=== PATIENT | male | born 1990 | race African-American/Black ===

== ENCOUNTER 2016-11-06 16:59 | Emergency (ER) | payer SELFPAY ==
[~2016-11-06] VITALS: Ht 172.7 cm; Wt 91.0 kg
[~2016-11-06 16:59] MED LIST: ALBU05; KEPP500
[2016-11-06 17:09] VITALS: BP 138/77
== END 2016-11-06 19:50 | disposition home or self-care (01) ==
LOC: ER 19:47
DX: Z76.0 Encounter for issue of repeat prescription (principal); J45.909 Unspecified asthma, uncomplicated; Z79.899 Other long term (current) drug therapy
CPT/HCPCS: 99283

== ENCOUNTER 2016-11-15 14:22 | Emergency (ER) | payer MEDICAID ==
[~2016-11-15] VITALS: Ht 175.3 cm; Wt 86.0 kg
[2016-11-15 14:56] VITALS: BP 132/67
== END 2016-11-15 16:11 | disposition home or self-care (01) ==
LOC: ER 15:54
DX: G40.909 Epilepsy, unspecified, not intractable, without status epilepticus (principal); J45.909 Unspecified asthma, uncomplicated; G91.9 Hydrocephalus, unspecified
CPT/HCPCS: 99283

== ENCOUNTER 2017-01-15 14:58 | Emergency (ER) | payer SELFPAY ==
[~2017-01-15] VITALS: Ht 172.7 cm; Wt 75.0 kg
[2017-01-15 15:09] VITALS: BP 119/77
== END 2017-01-15 16:10 | disposition home or self-care (01) ==
LOC: ER 16:09
DX: Z76.0 Encounter for issue of repeat prescription (principal); G40.909 Epilepsy, unspecified, not intractable, without status epilepticus; J45.909 Unspecified asthma, uncomplicated
CPT/HCPCS: 99283

== ENCOUNTER 2017-02-04 12:27 | Emergency (ER) | payer SELFPAY ==
[~2017-02-04] VITALS: Ht 175.3 cm; Wt 87.0 kg
[2017-02-04 13:16] VITALS: BP 140/84
== END 2017-02-04 18:14 | disposition left against medical advice (07) ==
LOC: ER 17:09
DX: Z53.21 Procedure and treatment not carried out due to patient leaving prior to being seen by health care provider (principal)

== ENCOUNTER 2017-02-05 00:37 | Emergency (ER) | payer SELFPAY ==
[~2017-02-05] VITALS: Ht 170.2 cm; Wt 61.0 kg
[2017-02-05 00:43] VITALS: BP 123/68
== END 2017-02-05 03:04 | disposition home or self-care (01) ==
LOC: ER 00:37
DX: Z76.0 Encounter for issue of repeat prescription (principal)
CPT/HCPCS: 99283

== ENCOUNTER 2017-03-06 09:47 | Emergency (ER) | payer SELFPAY ==
[~2017-03-06] VITALS: Ht 172.7 cm; Wt 81.0 kg
[2017-03-06 09:53] VITALS: BP 133/71
== END 2017-03-06 16:26 | disposition left against medical advice (07) ==
LOC: ER 13:46
DX: Z76.0 Encounter for issue of repeat prescription (principal); Z53.21 Procedure and treatment not carried out due to patient leaving prior to being seen by health care provider

== ENCOUNTER 2017-03-07 00:52 | Emergency (ER) | payer SELFPAY ==
[~2017-03-07] VITALS: Ht 170.2 cm; Wt 91.0 kg
[2017-03-07 00:55] VITALS: BP 128/75
== END 2017-03-07 03:50 | disposition left against medical advice (07) ==
LOC: ER 00:52
DX: Z53.21 Procedure and treatment not carried out due to patient leaving prior to being seen by health care provider (principal)

== ENCOUNTER 2017-03-11 18:23 | Emergency (ER) | payer SELFPAY ==
[~2017-03-11] VITALS: Ht 175.3 cm; Wt 91.0 kg
[2017-03-11 18:33] VITALS: BP 134/65
== END 2017-03-11 22:19 | disposition left against medical advice (07) ==
LOC: ER 18:34
DX: Z48.02 Encounter for removal of sutures (principal); Z53.21 Procedure and treatment not carried out due to patient leaving prior to being seen by health care provider

== ENCOUNTER 2017-03-13 09:20 | Emergency (ER) | payer BC ==
[~2017-03-13] VITALS: Ht 175.3 cm; Wt 91.0 kg
[2017-03-13] MEDS ORDERED: OXCA600T5 PO (09:31)
[2017-03-13 12:00] VITALS: BP 147/82
== END 2017-03-13 12:21 | disposition home or self-care (01) ==
LOC: ER 10:04
DX: Z76.0 Encounter for issue of repeat prescription (principal); G40.409 Other generalized epilepsy and epileptic syndromes, not intractable, without status epilepticus
CPT/HCPCS: 99283

== ENCOUNTER 2017-03-29 08:52 | Emergency (ER) | payer SELFPAY ==
[~2017-03-29] VITALS: Ht 175.3 cm; Wt 91.0 kg
[~2017-03-29 08:52] MED LIST changes: +OXCA600T5 PO
[2017-03-29 10:45] VITALS: BP 134/77
== END 2017-03-29 10:59 | disposition home or self-care (01) ==
LOC: ER 09:37
DX: Z76.0 Encounter for issue of repeat prescription (principal); G40.909 Epilepsy, unspecified, not intractable, without status epilepticus; J45.909 Unspecified asthma, uncomplicated; Z98.890 Other specified postprocedural states
CPT/HCPCS: 99283; Z7610

== ENCOUNTER 2017-04-27 15:14 | Emergency (ER) | payer OTHER ==
[~2017-04-27] VITALS: Ht 177.8 cm; Wt 93.0 kg
[2017-04-27 15:24] VITALS: BP 131/63
== END 2017-04-27 17:04 | disposition home or self-care (01) ==
LOC: ER 15:31
DX: Z76.0 Encounter for issue of repeat prescription (principal)
CPT/HCPCS: 99283

== ENCOUNTER 2017-05-28 11:55 | Emergency (ER) | payer OTHER ==
[~2017-05-28] VITALS: Ht 175.3 cm; Wt 91.0 kg
[2017-05-28 12:00] VITALS: BP 135/70
== END 2017-05-28 12:55 | disposition home or self-care (01) ==
LOC: ER 12:37
DX: Z76.0 Encounter for issue of repeat prescription (principal); J45.909 Unspecified asthma, uncomplicated
CPT/HCPCS: 99283

== ENCOUNTER 2017-06-18 10:34 | Emergency (ER) | payer OTHER ==
[~2017-06-18] VITALS: Ht 175.3 cm; Wt 91.0 kg
[2017-06-18 10:43] VITALS: BP 128/78
== END 2017-06-18 12:19 | disposition home or self-care (01) ==
LOC: ER 11:11
DX: R56.9 Unspecified convulsions (principal); J45.909 Unspecified asthma, uncomplicated
CPT/HCPCS: 99283

== ENCOUNTER 2017-07-04 06:38 | Emergency (ER) | payer OTHER ==
[~2017-07-04] VITALS: Ht 175.3 cm; Wt 100.0 kg
[2017-07-04 07:02] VITALS: BP 126/81
== END 2017-07-04 09:18 | disposition left against medical advice (07) ==
LOC: ER 07:12
DX: Z76.0 Encounter for issue of repeat prescription (principal); Z53.21 Procedure and treatment not carried out due to patient leaving prior to being seen by health care provider

== ENCOUNTER 2017-07-07 10:20 | Emergency (ER) | payer OTHER ==
[~2017-07-07] VITALS: Ht 175.3 cm; Wt 91.0 kg
[2017-07-07 10:32] VITALS: BP 124/63
== END 2017-07-07 12:07 | disposition home or self-care (01) ==
LOC: ER 11:31
DX: Z76.0 Encounter for issue of repeat prescription (principal); G40.909 Epilepsy, unspecified, not intractable, without status epilepticus; J45.909 Unspecified asthma, uncomplicated
CPT/HCPCS: 99283

== ENCOUNTER 2017-08-06 11:30 | Emergency (ER) | payer OTHER ==
[~2017-08-06] VITALS: Ht 175.3 cm; Wt 91.0 kg
[2017-08-06 16:27] VITALS: BP 123/78
== END 2017-08-06 16:28 | disposition home or self-care (01) ==
LOC: ER 12:53
DX: Z76.0 Encounter for issue of repeat prescription (principal); G40.909 Epilepsy, unspecified, not intractable, without status epilepticus; J45.909 Unspecified asthma, uncomplicated
CPT/HCPCS: 99283

== ENCOUNTER 2017-08-19 10:36 | Emergency (ER) | payer OTHER ==
[~2017-08-19] VITALS: Ht 175.3 cm; Wt 90.9 kg
[2017-08-19 13:55] VITALS: BP 124/64
== END 2017-08-19 14:52 | disposition home or self-care (01) ==
LOC: ER 13:46
DX: Z76.0 Encounter for issue of repeat prescription (principal); G40.909 Epilepsy, unspecified, not intractable, without status epilepticus; J45.909 Unspecified asthma, uncomplicated; Z79.899 Other long term (current) drug therapy
CPT/HCPCS: 99283

== ENCOUNTER 2017-09-18 06:26 | Emergency (ER) | payer OTHER ==
[~2017-09-18] VITALS: Ht 175.3 cm; Wt 91.0 kg
[2017-09-18 06:54] VITALS: BP 134/75
== END 2017-09-18 07:41 | disposition home or self-care (01) ==
LOC: ER 07:24
DX: R56.9 Unspecified convulsions (principal)
CPT/HCPCS: 99283